=== PATIENT | female | born 1945 | race African-American/Black ===

== ENCOUNTER 2016-08-12 10:23 | Emergency (ER) | payer MEDICARE, MEDICAID ==
--- NOTE | 2016-08-12 11:08 | ER Document Report ---
ED Medical Screen (RME) - General Chief Complaint: Dizziness Stated Complaint: DIZZINESS, HEADACHE Mode of Arrival: Ambulatory Information source: Patient TRAVEL OUTSIDE OF THE [place] IN LAST 30 DAYS: No - HPI Onset: Yesterday - LAST PM Onset/Duration: Sudden Quality of pain: Achy, Dull Severity: Mild Associated Symptoms: Headache - LEFT Exacerbated by: Standing Similar symptoms previously: No Recently seen / treated by doctor: No - Related Data Smoking: Non-smoker Frequency of alcohol use: None Drug Abuse: None Allergies/Adverse Reactions: codeine Allergy (Verified 08/12/16 10:37) Past Medical History - General Information source: Patient - Social History Cigarette use (# per day): No Chew tobacco use (# tins/day): No Frequency of alcohol use: None Drug Abuse: None Lives with: Alone Family history: denies: CVA - Past Medical History Cardiac Medical History: Reports: Hx Coronary Artery Disease Pulmonary Medical History: Reports: None Neurological Medical History: Reports: None Endocrine Medical History: Reports: Hx Diabetes Mellitus Type 2 Renal/ Medical History: Denies: Hx Peritoneal Dialysis Malignancy Medical History: Reports: None GI Medical History: Reports: None Past Surgical History: Reports: Hx Cardiac Catheterization, Hx Coronary Stent Review of Systems - Review of Systems Constitutional: See HPI EENT: See HPI Cardiovascular: No symptoms reported Respiratory: No symptoms reported Gastrointestinal: No symptoms reported, Nausea Female Genitourinary: Post menopausal Musculoskeletal: No symptoms reported Skin: No symptoms reported Physical Exam - Vital signs Interpretation: Bradycardic. No: Hypotensive, Tachypneic
[2016-08-12 11:45] LABS: ABSOLUTE BASOPHILS # (AUTO) 0.1 10^3/uL (0.0-0.2); ABSOLUTE EOSINOPHILS # (AUTO) 0.2 10^3/uL (0.0-0.6); ABSOLUTE LYMPHOCYTES (AUTO) 2.2 10^3/uL (0.5-4.7); ABSOLUTE MONOCYTES (AUTO) 0.6 10^3/uL (0.1-1.4); ABSOLUTE NEUT (AUTO) 4.2 10^3/uL (1.7-8.2); BASOPHILS % (AUTO) 0.7 % (0-2); EOSINOPHILS % (AUTO) 2.4 % (0-6); HEMOGLOBIN 11.5 g/dL (12.0-15.5); HGB HCT DIFFERENCE 0.5; LYMPHOCYTES % (AUTO) 30.2 % (13-45); MEAN CORPUSCULAR HEMOGLOBIN 30.1 pg (27.0-33.4); MEAN CORPUSCULAR HGB CONC 33.8 g/dL (32.0-36.0); MEAN CORPUSCULAR VOLUME 89 fl (80-97); MONOCYTES % (AUTO) 8.6 % (3-13); RED BLOOD COUNT 3.83 10^6/uL (3.72-5.28); RED CELL DISTRIBUTION WIDTH 13.7 % (11.5-14.0); SEGMENTED NEUTROPHILS % (AUTO) 58.1 % (42-78); WHITE BLOOD COUNT 7.2 10^3/uL (4.0-10.5)
[2016-08-12 12:06] LABS: ALANINE AMINOTRANSFERASE 136 U/L (9-52); ALBUMIN 3.7 g/dL (3.5-5.0); ALKALINE PHOSPHATASE 145 U/L (38-126); ANION GAP 10 (5-19); ASPARTATE AMINO TRANSFERASE 48 U/L (14-36); BILIRUBIN,DIRECT 0.2 mg/dL (0.0-0.4); BILIRUBIN,TOTAL 0.3 mg/dL (0.2-1.3); BLOOD UREA NITROGEN 13 mg/dL (7-20); CARBON DIOXIDE 30 mmol/L (22-30); CHLORIDE 98 mmol/L (98-107); CREATINE KINASE 66 U/L (30-135); CREATININE RESULT 0.86 mg/dL (0.52-1.25); GLUCOSE 232 mg/dL (75-110); POTASSIUM 4.4 mmol/L (3.6-5.0); SODIUM 137.9 mmol/L (137-145); TOTAL PROTEIN 5.9 g/dL (6.3-8.2)
[2016-08-12 12:16] LABS: CREATINE KINASE MB 1.21 ng/mL (<4.55); TROPONIN I 0.013 ng/mL
--- NOTE | 2016-08-12 12:55 | EKG REPORT ---
SEVERITY:- ABNORMAL ECG - RIGHT BUNDLE BRANCH BLOCK SECOND DEGREE AV BLOCK-WENKEBACH (TYPE 1) : Confirmed by: Altagracia Brannon MD 12-Aug-2016 12:55:12
[2016-08-12 13:44] LABS: ADD ON TESTING BLD IN LAB ACKNOWLEDGE
--- NOTE | 2016-08-12 13:57 | ER Document Report ---
ED Dizziness/Weakness - General Mode of Arrival: Ambulatory Information source: Patient TRAVEL OUTSIDE OF THE [place] IN LAST 30 DAYS: No - HPI Patient complains to provider of: Dizziness Onset: Yesterday Onset/Duration: Sudden, Intermittent Associated symptoms: Dizzy, Lightheaded, Weak all over <CY GUTIERREZ - Last Filed: 08/12/16 13:57> <MINH VIVAR - Last Filed: 08/12/16 14:31> - General Chief Complaint: Dizziness Stated Complaint: DIZZINESS, HEADACHE Notes: Patient is a 70-year-old female presenting to the emergency department concerned of dizziness onset late last night. Patient states that comes in waves of about 10-15 minutes. Patient describes the episode as making her feel weak, lightheaded, and dizzy. Patient states that is no worse lying down versus standing. Patient has a history of coronary artery disease and had a stent placed in 2008. Patient also has a history of lymphoma (2015). (CY GUTIERREZ) - Related Data Allergies/Adverse Reactions: codeine Allergy (Verified 08/12/16 10:37) Past Medical History - General Information source: Patient - Social History Smoking Status: Unknown if Ever Smoked Cigarette use (# per day): No Chew tobacco use (# tins/day): No Frequency of alcohol use: None Drug Abuse: None Lives with: Alone Family History: Reviewed & Not Pertinent Patient has suicidal ideation: No Patient has homicidal ideation: No - Past Medical History Cardiac Medical History: Reports: Hx Coronary Artery Disease Pulmonary Medical History: Reports: None Neurological Medical History: Reports: None Endocrine Medical History: Reports: Hx Diabetes Mellitus Type 2 Renal/ Medical History: Denies: Hx Peritoneal Dialysis Malignancy Medical History: Reports: Hx Lymphoma - 2016 GI Medical History: Reports: None Past Surgical History: Reports: Hx Cardiac Catheterization, Hx Coronary Stent - 2008 <CY GUTIERREZ - Last Filed: 08/12/16 13:57> Review of Systems - Review of Systems Constitutional: See HPI, Weakness EENT: No symptoms reported Cardiovascular: See HPI, Dizziness, Lightheaded Respiratory: No symptoms reported Gastrointestinal: No symptoms reported Genitourinary: No symptoms reported Female Genitourinary: No symptoms reported Musculoskeletal: No symptoms reported Skin: No symptoms reported Hematologic/Lymphatic: No symptoms reported Neurological/Psychological: No symptoms reported -: Yes All other systems reviewed and negative <CY GUTIERREZ - Last Filed: 08/12/16 13:57> Physical Exam - General General appearance: Appears well, Alert - HEENT Head: Normocephalic, Atraumatic Eyes: Normal Pupils: PERRL - Respiratory Respiratory status: No respiratory distress Chest status: Nontender Breath sounds: Normal Chest palpation: Normal - Cardiovascular Rhythm: Bradycardia Heart sounds: Normal auscultation Murmur: No - Abdominal Inspection: Obese Distension: No distension Bowel sounds: Normal Tenderness: Nontender Organomegaly: No organomegaly - Back Back: Normal, Nontender - Extremities General upper extremity: Normal inspection, Nontender General lower extremity: Normal inspection, Nontender - Neurological Neuro grossly intact: Yes Cognition: Normal Orientation: AAOx4 [place] Coma Scale Eye Opening: Spontaneous Jess Coma Scale Verbal: Oriented Jess Coma Scale Motor: Obeys Commands Jess Coma Scale Total: 15 Speech: Normal - Psychological Associated symptoms: Normal affect, Normal mood - Skin Skin Temperature: Warm Skin Moisture: Dry Skin Color: Normal <CY GUTIERREZ - Last Filed: 08/12/16 13:57> Course - Laboratory Result Diagrams: 08/12/16 11:15 08/12/16 11:15 <CY GUTIERREZ - Last Filed: 08/12/16 13:57> - Laboratory Result Diagrams: 08/12/16 11:15 08/12/16 11:15 - Diagnostic Test Radiology reviewed: Image reviewed, Reports reviewed - Chest x-ray and CT of the head are unremarkable - EKG Interpretation by Id EKG shows normal: [place], Intervals, QRS Complexes, ST-T Waves Rate: Bradycardia - 43 Rhythm: Other Heart block present: CHB (3rd degree block) When compared to previous EKG there are: Previous EKG unavailable - Consults Dr. Celso Roberts Consulted provider: other <MINH VIVAR - Last Filed: 08/12/16 14:31> - Vital Signs Vital signs: Temp Pulse Resp BP Pulse Ox 98.6 F 45 L 150/50 H 96 08/12/16 10:33 08/12/16 10:33 08/12/16 10:33 08/12/16 10:33 - Laboratory Laboratory results interpreted by nj: 08/12/16 08/12/16 11:15 11:15 Hgb 11.5 L Hct 34.0 L Glucose 232 H Calcium 11.0 H AST 48 H ALT 136 H Alkaline Phosphatase 145 H Total Protein 5.9 L Critical Care Note - Critical Care Note Total time excluding time spent on procedures (mins): 35 <MINH VIVAR - Last Filed: 08/12/16 14:31> Discharge <CY GUTIERREZ - Last Filed: 08/12/16 13:57> <MINH VIVAR - Last Filed: 08/12/16 14:31> - Discharge Clinical Impression: Atrioventricular block, third degree Condition: Good Disposition: [facility] Scribe Documentation - Scribe Written by Scribe:: Cy Gutierrez 08/12/2016 1352 acting as scribe for :: Isabel <CY GUTIERREZ - Last Filed: 08/12/16 13:57>
[2016-08-12 14:03] LABS: MAGNESIUM 1.9 mg/dL (1.6-2.3)
[2016-08-12] MEDS ORDERED: NORMAL SALINE 1000 ML 250 ML IV ONE (14:12)
[2016-08-12 15:13] VITALS: BP 155/65
--- NOTE | 2016-08-12 19:12 | EKG REPORT ---
SEVERITY:- ABNORMAL ECG - SINUS RHYTHM RBBB AND LAFB PROBABLE LEFT VENTRICULAR HYPERTROPHY : Confirmed by: Altagracia Brannon MD 12-Aug-2016 19:10:56
== END 2016-08-12 15:25 | disposition short-term general hospital (02) ==
LOC: ER 10:23
DX: I44.30 Unspecified atrioventricular block (principal); R42 Dizziness and giddiness; R51 Headache; R53.1 Weakness
CPT/HCPCS: 36415; 70450; 71020; 80053; 82550; 82553; 83735; 84484; 85025; 93005; 93010; 99291